=== PATIENT | male | born 1955 | race Caucasian/White ===

== ENCOUNTER 2018-05-11 11:53 | Day surgery (SDC) | payer OTHER ==
[2018-05-10 14:05] VITALS: BMI 32.8
--- NOTE | 2018-05-11 15:39 | MRI ---
MRI OF LUMBAR SPINE PERFORMED WITHOUT CONTRAST ENHANCEMENT: HISTORY: Low back pain that radiates down to the left lower extremity. FINDINGS: The vertebral bodies are normal in height. There is some minimal disk narrowing with disk desiccatio n changes at L4-5. There is no significant periaortic adenopathy. Small hyperintense area within th e right kidney is statistically most likely a small cyst.. T12-L1: Unremarkable. L1-2: Unremarkable. L2-3: Mild facet hypertrophic changes without canal or foraminal stenosis. L3-4: Some fluid within the facet joints. There is borderline canal narrowing. L4-5: The canal shows a mild to moderate degree of stenosis with a disk bulge present at this level and what appears to be a small central protrusion. This, in conjunction with facet and ligamentous h ypertrophic changes are causing the stenosis. No significant foraminal narrowing. L5-S1: There is a small annular disk tear present. No significant canal or foraminal stenosis. IMPRESSION: Mild to moderate canal stenosis at the L4-5 level caused by a combination of disk bulge, facet and li gamentous hypertrophic changes. There also appears to be a small central disk protrusion associated with this. POS: [facility]
[2018-05-11] MEDS ORDERED: Lidocaine 1% PF 5 ML VIAL ONE (17:16)
[2018-05-11] MEDS ORDERED: PROPOFOL 200 MG/20 ML VIAL ONE (17:16)
== END 2018-05-11 16:30 | disposition home or self-care (01) ==
LOC: SDC/OP 11:53
PROVIDERS: ATTEND Internal Medicine
DX: M51.16 Intervertebral disc disorders with radiculopathy, lumbar region (principal); M48.061 Spinal stenosis, lumbar region without neurogenic claudication; I10 Essential (primary) hypertension; E78.00 Pure hypercholesterolemia, unspecified; Z79.899 Other long term (current) drug therapy
CPT/HCPCS: 72148; J2001; J2704